=== PATIENT | male | born 1950 | race Caucasian/White ===

== ENCOUNTER 2017-09-01 05:38 | Inpatient (IN) | payer MEDICARE, MEDICAID ==
[2017-08-17 08:58] VITALS: BMI 27.1
[2017-09-01] MEDS ORDERED: Bacitracin 50,000 UNIT in Sodium Chloride 0.9% Irrig 1,000 ML IR SCH (07:15)
[2017-09-01] MEDS ORDERED: Propofol 10 mg/ml Inj (20 ML) ONE (07:30)
[2017-09-01] MEDS ORDERED: Midazolam 2 MG/2 ML VIAL ONE (07:30)
[2017-09-01] MEDS ORDERED: Phenylephrine 10 mg/ml Inj ONE (07:34)
[2017-09-01] MEDS ORDERED: Neostigmine Methylsulfate 3mg/3ml Syringe IV ONE (07:34)
[2017-09-01] MEDS ORDERED: Succinylcholine Chloride 20 mg/ml Syr (5 ml) IV ONE (07:34)
[2017-09-01] MEDS ORDERED: Rocuronium 10 mg/ml (5 ml) ONE (07:34)
[2017-09-01] MEDS ORDERED: Gentamicin 160 MG in Sodium Chloride 0.9% 100 ML IVPB ONE (07:47)
[2017-09-01] MEDS ORDERED: Vancomycin 1 gm/D5W 200 ml 1 GM/200 ML BAG IVPB ONE (07:49)
[2017-09-01] MEDS ORDERED: Lactated Ringer's 1,000 ML IV ONE ×2 (08:05→09:51)
[2017-09-01] MEDS ORDERED: Bacitracin 500 Units/gm Oint Foilpak UD ONE (10:13)
[2017-09-01] MEDS ORDERED: Morphine 4 MG/ML VIAL ONE (10:24)
[2017-09-01] MEDS: HYDROmorphone 0.5 mg/0.5 ml ISec IVP PRN ×4 (11:36→13:37)
[2017-09-01] MEDS ORDERED: Oxycodone/Acetaminophen 5/325 mg Tab PO PRN (12:47)
[2017-09-01] MEDS ORDERED: HYDROmorphone 0.5 mg/0.5 ml ISec IVP PRN (13:36)
[2017-09-01] MEDS ORDERED: HYDROmorphone 0.5 mg/0.5 ml ISec ONE (13:38)
[2017-09-01] MEDS: Oxycodone/Acetaminophen 5/325 mg Tab PO PRN (22:35)
[2017-09-02] MEDS: Oxycodone/Acetaminophen 5/325 mg Tab PO PRN (08:20)
[2017-09-02] MEDS: Dextrose 5%/0.45% NS 1,000 ML IV SCH (10:30)
[2017-09-02] MEDS: Morphine 4 MG/ML VIAL SC PRN ×3 (11:33→23:55)
[2017-09-02] MEDS: Ciprofloxacin 400mg/200ml D5W 400 MG/200 ML BAG IVPB SCH (12:55)
--- NOTE | 2017-09-02 20:26 | CP.PCM.CON ---
Past Patient History - Past Medical History & Family History Past Medical History?: Yes - Past Social History Smoking Status: Never Smoked - HEMATOLOGICAL/ONCOLOGICAL Hx Blood Disorders: Yes Hx Cancer: Yes (prostate) - GENITOURINARY/GYNECOLOGICAL Hx Genitourinary Disorders: Yes (erecticle dysfunction) - SURGICAL HISTORY Hx Surgeries: Yes Hx Appendectomy: Yes Other/Comment: prostactectomy - ANESTHESIA Hx Anesthesia: Yes Hx Anesthesia Reactions: No Hx Malignant Hyperthermia: No Has any member of the family had a problem w/ anesthesia?: No Meds Allergies/Adverse Reactions: Allergies Allergy/AdvReac Type Severity Reaction Status Date / Time shellfish derived Allergy RASH Verified 09/01/17 05:55 - Medications Medications: Current Medications Dextrose/Sodium Chloride (Dextrose 5%/0.45% Ns 1000 Ml) 1,000 mls @ 50 mls/hr IV .Q20H [facility] Last Admin: 09/02/17 10:30 Dose: 50 mls/hr Ciprofloxacin (Cipro 400mg/200ml Dsw) 400 mg in 200 mls @ 133 mls/hr IVPB Q12H [facility] PRN Reason: Protocol Last Admin: 09/02/17 12:55 Dose: 133 mls/hr Morphine Sulfate (Morphine) 3 mg SC Q3 PRN PRN Reason: Pain, severe (8-10) Last Admin: 09/02/17 15:58 Dose: 3 mg Oxycodone/Acetaminophen (Percocet 5/325 Mg Tab) 1 tab PO Q6H PRN PRN Reason: Pain, moderate (4-7) Stop: 09/04/17 15:26 Last Admin: 09/02/17 08:20 Dose: 1 tab Results - Vital Signs Recent Vital Signs: Last Vital Signs Temp 98.1 F 09/02/17 15:00 Pulse 86 09/02/17 15:00 Resp 20 09/02/17 15:00 BP 130/72 09/02/17 15:00 Pulse Ox 98 09/02/17 15:00 Assessment & Plan - Assessment and Plan (Free Text) Plan: Cipro Protonix SCD Urine culture sensitivity Discussed with the patient and another family member sitting next to the patient continue same
[2017-09-03 08:03] LABS: BASO % 0.3 % (0.0-2.0); EOS # 0.1 K/uL (0.0-0.7); EOS % 0.7 % (0.0-4.0); HEMOGLOBIN 14.1 g/dL (12.0-18.0); LYMPH # 1.7 K/uL (1.0-4.3); LYMPH % 12.5 % (20.0-40.0); MEAN CELL VOLUME 97.8 fL (80.0-94.0); MEAN CORPUSCULAR HEMOGLOBIN 33.9 pg (27.0-31.0); MEAN CORPUSCULAR HGB CONC 34.6 g/dL (33.0-37.0); MEAN PLATELET VOLUME 11.5 fL (7.2-11.7); MONO # 1.7 K/uL (0.0-0.8); MONO % 12.2 % (0.0-10.0); NEUT # 10.2 K/uL (1.8-7.0); NEUT % 74.3 % (50.0-75.0); RBC 4.15 Mil/uL (4.40-5.90); RED CELL DISTRIBUTION WIDTH 12.6 % (11.5-14.5); WHITE BLOOD COUNT 13.7 K/uL (4.8-10.8)
[2017-09-03 08:25] LABS: ALB/GLOB RATIO 1.1 (1.0-2.1); ALBUMIN 3.9 g/dL (3.5-5.0); ALT/SGPT 29 U/L (21-72); AST/SGOT 26 U/L (17-59); BLOOD UREA NITROGEN 12 mg/dL (9-20); CALCIUM 8.4 mg/dl (8.6-10.4); GFR AFRICAN-AMERICAN > 60; GFR NON-AFRICAN AMERICAN > 60
[2017-09-03] MEDS: Morphine 4 MG/ML VIAL SC PRN ×2 (08:29→16:52)
[2017-09-03] MEDS: Dextrose 5%/0.45% NS 1,000 ML IV SCH ×2 (08:37→12:06)
[2017-09-03] MEDS: Pantoprazole 40 mg EC Tab PO SCH (10:58)
[2017-09-03] MEDS: Oxycodone/Acetaminophen 5/325 mg Tab PO PRN ×2 (12:01→21:46)
[2017-09-03] MEDS: Ciprofloxacin 400mg/200ml D5W 400 MG/200 ML BAG IVPB SCH ×2 (12:04)
--- NOTE | 2017-09-03 16:24 | CP.PCM.PN ---
Subjective - Date & Time of Evaluation Date of Evaluation: 09/03/17 Time of Evaluation: 07:10 - Subjective Subjective: clinically same Objective - Vital Signs/Intake and Output Vital Signs (last 24 hours): Temp Pulse Resp BP Pulse Ox 98.0 F 82 20 117/69 95 09/03/17 15:00 09/03/17 15:00 09/03/17 15:00 09/03/17 15:00 09/03/17 15:00 Intake and Output: 09/03/17 09/03/17 06:59 18:59 Intake Total Output Total Balance - Medications Medications: Current Medications Morphine Sulfate (Morphine) 3 mg SC Q3 PRN PRN Reason: Pain, severe (8-10) Last Admin: 09/03/17 08:29 Dose: 3 mg Oxycodone/Acetaminophen (Percocet 5/325 Mg Tab) 1 tab PO Q6H PRN PRN Reason: Pain, moderate (4-7) Stop: 09/04/17 15:26 Last Admin: 09/03/17 12:01 Dose: 1 tab Pantoprazole Sodium (Protonix Ec Tab) 40 mg PO DAILY [facility] Last Admin: 09/03/17 10:58 Dose: 40 mg - Labs Labs: 09/03/17 07:52 09/03/17 07:52 - Constitutional Appears: Well - Head Exam Head Exam: ATRAUMATIC, NORMAL INSPECTION, NORMOCEPHALIC - Eye Exam Eye Exam: EOMI, Normal appearance, PERRL Pupil Exam: NORMAL ACCOMODATION, PERRL - ENT Exam ENT Exam: Mucous Membranes Moist, Normal Exam - Neck Exam Neck Exam: Full ROM, Normal Inspection. absent: Lymphadenopathy - Respiratory Exam Respiratory Exam: Decreased Breath Sounds - Cardiovascular Exam Cardiovascular Exam: REGULAR RHYTHM, +S1, +S2 - GI/Abdominal Exam GI & Abdominal Exam: Soft, Diminished Bowel Sounds - Rectal Exam Rectal Exam: Deferred
[2017-09-04 08:02] VITALS: RESP 20
[2017-09-04] MEDS: Morphine 4 MG/ML VIAL SC PRN ×2 (08:13→13:38)
[2017-09-04] MEDS: Pantoprazole 40 mg EC Tab PO SCH (09:43)
[2017-09-04] MEDS ORDERED: Influenza Vaccine 60 mcg/0.5 mL SYR (4YR UP) IM ONE (10:00)
--- NOTE | 2017-09-04 11:55 | CP.PCM.PN ---
<YifanShine bramibla - Last Filed: 09/04/17 15:55> Subjective - Date & Time of Evaluation Date of Evaluation: 09/04/17 Time of Evaluation: 11:43 - Subjective Subjective: PGY-[address] Akers's service: Pt seen and examined at bedside. Nursing reports no acute events overnight. Patient s/p penile implant, pt with history of erectile dysfunction/ prostatectomy. Pt states his pain was controlled with current regimen but admits to pain when his medication is wearing off. He denies fever, chills, chest pain, SOB, abdominal pain, N/V. Objective - Vital Signs/Intake and Output Vital Signs (last 24 hours): Temp Pulse Resp BP Pulse Ox 98.5 F 90 20 111/71 97 09/04/17 08:00 09/04/17 08:00 09/04/17 08:00 09/04/17 08:00 09/04/17 08:00 Intake and Output: 09/04/17 09/04/17 06:59 18:59 Intake Total 170 Output Total 800 Balance -630 - Medications Medications: Current Medications Morphine Sulfate (Morphine) 3 mg SC Q3 PRN PRN Reason: Pain, severe (8-10) Last Admin: 09/04/17 08:13 Dose: 3 mg Oxycodone/Acetaminophen (Percocet 5/325 Mg Tab) 1 tab PO Q6H PRN PRN Reason: Pain, moderate (4-7) Stop: 09/04/17 15:26 Last Admin: 09/03/17 21:46 Dose: 1 tab Pantoprazole Sodium (Protonix Ec Tab) 40 mg PO DAILY [facility] Last Admin: 09/04/17 09:43 Dose: 40 mg - Labs Labs: 09/03/17 07:52 09/03/17 07:52 - Constitutional Appears: Non-toxic, No Acute Distress - Head Exam Head Exam: ATRAUMATIC, NORMAL INSPECTION - Eye Exam Eye Exam: EOMI, Normal appearance Pupil Exam: PERRL - ENT Exam ENT Exam: Mucous Membranes Moist - Neck Exam Neck Exam: Full ROM - Respiratory Exam Respiratory Exam: Clear to Ausculation Bilateral, NORMAL BREATHING PATTERN - Cardiovascular Exam Cardiovascular Exam: REGULAR RHYTHM, +S1, +S2 - GI/Abdominal Exam GI & Abdominal Exam: Soft, Normal Bowel Sounds. absent: Tenderness - Extremities Exam Extremities Exam: Normal Inspection - Back Exam Back Exam: absent: CVA tenderness (L), CVA tenderness (R) - Neurological Exam Neurological Exam: Alert, Awake, Oriented x3 - Psychiatric Exam Psychiatric exam: Normal Affect, Normal Mood - Skin Skin Exam: Normal Color, Warm Assessment and Plan - Assessment and Plan (Free Text) Plan: s/p Penile implant Hx of prostatectomy/Erectile dysfunction Morphine 3mg SC Q3H PRN Percocet 5/325mg PO Q6H PRN Urine culture (09/01/17): no growth Prophylaxis Protonix 40mg PO Daily SCDs Hold VTE at this time due to recent procedure PT/OT - recommend DC to TCU Disposition: Pt for removal of guerra cath today by Dr. Black. Possible discharge pending evaluation by Dr. Black. Shine Kwan PGY2 All medical management per Dr. Akers <Marisol Akers S - Last Filed: 09/04/17 19:28> Subjective - Subjective Subjective: Casein and discussed with the staff and the resident Objective - Vital Signs/Intake and Output Vital Signs (last 24 hours): Temp Pulse Resp BP Pulse Ox 98.6 F 84 20 106/64 95 09/04/17 16:00 09/04/17 16:00 09/04/17 16:00 09/04/17 16:00 09/04/17 16:00 Intake and Output: 09/04/17 09/05/17 18:59 06:59 Intake Total 480 Output Total 525 Balance -45 - Medications Medications: Current Medications Cephalexin Monohydrate (Keflex) 500 mg PO Q6 [facility] PRN Reason: Protocol Last Admin: 09/04/17 18:10 Dose: 500 mg Docusate Sodium (Colace) 100 mg PO TID [facility] Last Admin: 09/04/17 18:10 Dose: 100 mg Morphine Sulfate (Morphine) 3 mg SC Q3 PRN PRN Reason: Pain, severe (8-10) Last Admin: 09/04/17 13:38 Dose: 3 mg Oxycodone/Acetaminophen (Percocet 5/325 Mg Tab) 1 tab PO Q6H PRN PRN Reason: Pain, severe (8-10) Stop: 09/07/17 15:35 Last Admin: 09/04/17 15:40 Dose: 1 tab Pantoprazole Sodium (Protonix Ec Tab) 40 mg PO DAILY [facility] Last Admin: 09/04/17 09:43 Dose: 40 mg - Labs Labs: 09/03/17 07:52 09/03/17 07:52 Assessment and Plan (1) Malfunction of penile prosthesis Status: Acute (2) UTI (urinary tract infection) Status: Acute
--- NOTE | 2017-09-04 13:10 | CP.PCM.PN ---
Subjective - Date & Time of Evaluation Date of Evaluation: 09/04/17 Time of Evaluation: 07:10 - Subjective Subjective: clinically same Objective - Vital Signs/Intake and Output Vital Signs (last 24 hours): Temp Pulse Resp BP Pulse Ox 98.5 F 90 20 111/71 97 09/04/17 08:00 09/04/17 12:48 09/04/17 08:00 09/04/17 08:00 09/04/17 12:48 Intake and Output: 09/04/17 09/04/17 06:59 18:59 Intake Total 170 Output Total 800 Balance -630 - Medications Medications: Current Medications Morphine Sulfate (Morphine) 3 mg SC Q3 PRN PRN Reason: Pain, severe (8-10) Last Admin: 09/04/17 08:13 Dose: 3 mg Oxycodone/Acetaminophen (Percocet 5/325 Mg Tab) 1 tab PO Q6H PRN PRN Reason: Pain, moderate (4-7) Stop: 09/04/17 15:26 Last Admin: 09/03/17 21:46 Dose: 1 tab Pantoprazole Sodium (Protonix Ec Tab) 40 mg PO DAILY [facility] Last Admin: 09/04/17 09:43 Dose: 40 mg - Labs Labs: 09/03/17 07:52 09/03/17 07:52 - Constitutional Appears: Well - Head Exam Head Exam: ATRAUMATIC, NORMAL INSPECTION, NORMOCEPHALIC - Eye Exam Eye Exam: EOMI, Normal appearance, PERRL Pupil Exam: NORMAL ACCOMODATION, PERRL - ENT Exam ENT Exam: Mucous Membranes Moist, Normal Exam - Neck Exam Neck Exam: Full ROM, Normal Inspection. absent: Lymphadenopathy - Respiratory Exam Respiratory Exam: Decreased Breath Sounds - Cardiovascular Exam Cardiovascular Exam: REGULAR RHYTHM, +S1, +S2 - GI/Abdominal Exam GI & Abdominal Exam: Soft, Diminished Bowel Sounds - Rectal Exam Rectal Exam: Deferred Assessment and Plan (1) Malfunction of penile prosthesis Status: Acute (2) UTI (urinary tract infection) Status: Acute - Assessment and Plan (Free Text) Plan: s/p Penile implant Hx of prostatectomy/Erectile dysfunction Morphine 3mg SC Q3H PRN Percocet 5/325mg PO Q6H PRN Urine culture (09/01/17): no growth Prophylaxis Protonix 40mg PO Daily SCDs Hold VTE at this time due to recent procedure PT/OT - recommend DC to TCU Disposition: Pt for removal of guerra cath today by Dr. Black. Possible discharge pending evaluation by Dr. Black.
[2017-09-04] MEDS ORDERED: Oxycodone/Acetaminophen 5/325 mg Tab PO PRN (15:34)
[2017-09-04] MEDS ORDERED: Magnesium Hydroxide Susp 30 ml UD PO ONE ×2 (16:26→17:45)
[2017-09-04] MEDS ORDERED: POLYETHYLENE GLYCOL 3350 17 GM/Dose PACKET PO ONE (16:29)
[2017-09-05 08:24] VITALS: BP 119/75; PULSE 87; TEMP 98.2; O2SAT 97
--- NOTE | 2017-09-05 08:41 | PCM.URO ---
Urology Progress Note - Objective Lab Studies: Reviewed (plans for discharge) Intake & Output: Intake & Output 09/04/17 09/05/17 09/05/17 18:59 06:59 18:59 Intake Total 480 240 Output Total 525 Balance -45 240 Intake: Oral 480 240 Output: Urine 525 Urethral (Griffin) 525 Other: # Voids Urethral (Griffin) 2 # Bowel Movements 0 Vital Signs: Vital Signs - 24 hr 09/04/17 09/04/17 09/05/17 12:48 16:00 00:00 Temperature 98.6 F 98.3 F Pulse Rate 90 84 89 Respiratory 20 20 Rate Blood Pressure 106/64 114/77 O2 Sat by Pulse 97 95 94 L Oximetry 09/05/17 08:23 Temperature 98.2 F Pulse Rate 87 Respiratory 20 Rate Blood Pressure 119/75 O2 Sat by Pulse 97 Oximetry
[2017-09-05] MEDS: Pantoprazole 40 mg EC Tab PO SCH (09:42)
--- NOTE | 2017-09-05 09:59 | CP.PCM.PN ---
<Sukhjinder Billingsley - Last Filed: 09/05/17 11:04> Subjective - Date & Time of Evaluation Date of Evaluation: 09/05/17 Time of Evaluation: 09:58 - Subjective Subjective: Progress Note for Dr. Akers's Service Pt seen and examined at bedside. He states that he is feeling well and would like to go home. No bowel movement as of yet. Patient does not have any acute complaints. No acute events. Objective - Vital Signs/Intake and Output Vital Signs (last 24 hours): Temp Pulse Resp BP Pulse Ox 98.2 F 87 20 119/75 97 09/05/17 08:23 09/05/17 08:23 09/05/17 08:23 09/05/17 08:23 09/05/17 08:23 Intake and Output: 09/05/17 09/05/17 06:59 18:59 Intake Total 240 Balance 240 - Medications Medications: Current Medications Cephalexin Monohydrate (Keflex) 500 mg PO Q6 [facility] PRN Reason: Protocol Last Admin: 09/05/17 05:18 Dose: 500 mg Docusate Sodium (Colace) 100 mg PO TID [facility] Last Admin: 09/05/17 09:42 Dose: 100 mg Morphine Sulfate (Morphine) 3 mg SC Q3 PRN PRN Reason: Pain, severe (8-10) Last Admin: 09/04/17 13:38 Dose: 3 mg Oxycodone/Acetaminophen (Percocet 5/325 Mg Tab) 1 tab PO Q6H PRN PRN Reason: Pain, severe (8-10) Stop: 09/07/17 15:35 Last Admin: 09/04/17 15:40 Dose: 1 tab Pantoprazole Sodium (Protonix Ec Tab) 40 mg PO DAILY [facility] Last Admin: 09/05/17 09:42 Dose: 40 mg - Labs Labs: 09/03/17 07:52 09/03/17 07:52 - Constitutional Appears: No Acute Distress - Head Exam Head Exam: ATRAUMATIC, NORMAL INSPECTION - Eye Exam Eye Exam: EOMI, Normal appearance - ENT Exam ENT Exam: Mucous Membranes Moist - Respiratory Exam Respiratory Exam: Clear to Ausculation Bilateral - Cardiovascular Exam Cardiovascular Exam: REGULAR RHYTHM, +S1, +S2 - GI/Abdominal Exam GI & Abdominal Exam: Soft. absent: Tenderness - Neurological Exam Neurological Exam: Alert, Awake, Oriented x3 - Skin Skin Exam: Dry, Warm Assessment and Plan - Assessment and Plan (Free Text) Plan: s/p Penile implant Hx of prostatectomy/Erectile dysfunction Pain is reduced/tolerable on current medications. Urine culture (09/01/17): no growth Discharge planning for today as per urology. Patient will need follow up after discharge. Case discussed with Dr. Akers. All management as per Dr. Akers. <Marisol Akers - Last Filed: 09/05/17 12:17> Objective - Vital Signs/Intake and Output Vital Signs (last 24 hours): Temp Pulse Resp BP Pulse Ox 98.2 F 87 20 119/75 97 09/05/17 08:23 09/05/17 08:23 09/05/17 08:23 09/05/17 08:23 09/05/17 08:23 Intake and Output: 09/05/17 09/05/17 06:59 18:59 Intake Total 240 Balance 240 - Medications Medications: Current Medications Cephalexin Monohydrate (Keflex) 500 mg PO Q6 [facility] PRN Reason: Protocol Last Admin: 09/05/17 12:07 Dose: 500 mg Docusate Sodium (Colace) 100 mg PO TID [facility] Last Admin: 09/05/17 09:42 Dose: 100 mg Morphine Sulfate (Morphine) 3 mg SC Q3 PRN PRN Reason: Pain, severe (8-10) Last Admin: 09/04/17 13:38 Dose: 3 mg Oxycodone/Acetaminophen (Percocet 5/325 Mg Tab) 1 tab PO Q6H PRN PRN Reason: Pain, severe (8-10) Stop: 09/07/17 15:35 Last Admin: 09/04/17 15:40 Dose: 1 tab Pantoprazole Sodium (Protonix Ec Tab) 40 mg PO DAILY [facility] Last Admin: 09/05/17 09:42 Dose: 40 mg - Labs Labs: 09/03/17 07:52 09/03/17 07:52 Assessment and Plan (1) Malfunction of penile prosthesis Status: Acute (2) UTI (urinary tract infection) Status: Acute Attending/Attestation - Attestation I have personally seen and examined this patient.: Yes I have fully participated in the care of the patient.: Yes I have reviewed all pertinent clinical information, including history, physical exam and plan: Yes Notes (Text): 09/05/17 12:17 case seen and d.w staff med agreed for penile implant kealisa
--- NOTE | 2017-09-05 12:18 | CP.PCM.PN ---
Subjective - Date & Time of Evaluation Date of Evaluation: 09/05/17 Objective - Vital Signs/Intake and Output Vital Signs (last 24 hours): Temp Pulse Resp BP Pulse Ox 98.2 F 87 20 119/75 97 09/05/17 08:23 09/05/17 08:23 09/05/17 08:23 09/05/17 08:23 09/05/17 08:23 Intake and Output: 09/05/17 09/05/17 06:59 18:59 Intake Total 240 Balance 240 - Medications Medications: Current Medications Cephalexin Monohydrate (Keflex) 500 mg PO Q6 [facility] PRN Reason: Protocol Last Admin: 09/05/17 12:07 Dose: 500 mg Docusate Sodium (Colace) 100 mg PO TID [facility] Last Admin: 09/05/17 09:42 Dose: 100 mg Morphine Sulfate (Morphine) 3 mg SC Q3 PRN PRN Reason: Pain, severe (8-10) Last Admin: 09/04/17 13:38 Dose: 3 mg Oxycodone/Acetaminophen (Percocet 5/325 Mg Tab) 1 tab PO Q6H PRN PRN Reason: Pain, severe (8-10) Stop: 09/07/17 15:35 Last Admin: 09/04/17 15:40 Dose: 1 tab Pantoprazole Sodium (Protonix Ec Tab) 40 mg PO DAILY [facility] Last Admin: 09/05/17 09:42 Dose: 40 mg - Labs Labs: 09/03/17 07:52 09/03/17 07:52 Assessment and Plan (1) Malfunction of penile prosthesis Status: Acute (2) UTI (urinary tract infection) Status: Acute - Assessment and Plan (Free Text) Plan: Urine culture so far negative continue Cipro discharge on Keflex follow-up with Dr. Heart For discharge today
--- NOTE | 2017-10-02 02:46 | DS ---
See the admission history and physical and see the operative note. See the progress note. At this point, this patient is discharged to home. Postop, the patient had a normal postop course. No fevers. No signs of infection. Vital signs remain stable, just having some normal abdominal discomfort. Subsequently, the patient is now discharged home in stable condition. INSTRUCTIONS FOR DISCHARGE: To return to the office. Management of urinary output and Griffin catheters and then further plans are to follow. We discussed also cycling of the pump. We will discuss this with the patient further. Hang Black MD
--- NOTE | 2017-10-02 07:35 | OP ---
PROCEDURE DATE: 09/01/2017 PREOPERATIVE DIAGNOSES: Prostate cancer, no evidence of recurrent, erectile dysfunction, faulty functioning AMS penile prosthesis with an SST deformity at the prosthesis not in the mid glans rather within the shaft. There was a little imbalance towards the right side but neither one coming too far distally. POSTOPERATIVE DIAGNOSES: Prostate cancer, no evidence of recurrent, erectile dysfunction, faulty functioning AMS penile prosthesis with an SST deformity at the prosthesis not in the mid glans rather within the shaft. There is a little imbalance on the left and right side but neither one coming too far distally. PROCEDURE: Removal of the old penile prosthesis, insertion of a new inflatable repeat prosthesis, looks like including a new reservoir including a new pump. SURGEON: Hang Black MD TRAILER SECTIONS ASSEMBLER: Radha Black MD ESTIMATED BLOOD LOSS: Less than 25 cc. COMPLICATIONS: There were no complications. The patient has a whole erection with no SST deformity with both penile prostheses in the mid glans. DRAINS: Griffin catheter via the urethra. At the termination of the procedure, the patient has a good erection with no SST deformity. The pump is within the scrotum well, it is actually in a new location. It is in the mid portion, the distended portion, of the scrotum. A new reservoir has now been placed on the patient's left thigh. The old reservoir has been secured in place. The old prosthesis was removed. INDICATIONS: See history and physical for further details. A very pleasant gentleman with prostate cancer. Currently, no evidence of disease who is now here for the above listed procedure. I discussed with the patient the risks and benefits, I also read all the material including my atlases. I read the recent article on management of SST deformity. Given the complex nature of the surgery and the fact I have to redo, I have also made arrangement to have a board certified urologist here to assist me not if the OR upholstery technician, but an actual urologist, given the difficult nature of this procedure for the patient safety. The patient has medical clearance. We discussed options. We discussed sometimes, we tear the glans. I think that this will correct the SST deformity, but in this case in close physical exam, the prosthesis itself is really within the shaft as a little asymmetry between the left and right thigh, but neither one is either close to the mid glans, I think this will correct the patient's problem more than anything, so after discussing all the options with the patient, risks, benefits, treatment and alternatives, he is now here for the above procedure. The patient was provided with antibiotic prophylaxis. See the chart for the antibiotics which were used. Today, prior to the procedure, we brought the patient for preoperative scrub as well as providing the routine scrub. Time-out was called, and we confirmed the patient. We had given antibiotic prophylaxis, and we began our procedure. Also arranged to have traffic representative here as well. DESCRIPTION OF PROCEDURE: The procedure is as follows. The patient was placed in a supine position. The Griffin catheter was inserted in a sterile field. We went through, we did a penile scrotal incision. We dissected down through the previous prosthesis, and delivered the old prosthesis. We did it meticulously and carefully. We made it safe by keeping the old reservoir and the old pump but after speaking about it with the patient in this particular setting in terms of risks of injection, location, etc, we adjusted all positioning. Once we removed the shaft, we dilated, although it was mostly dilated but we wanted to go much more distally. We also were able to access based on the prosthesis and the company team available. We were able to check the previous sizing,and then adjust accordingly and actually add a centimeter or two to the prosthesis, about 2 cm in each side. This We carefully did this. We dilated proximally and distally, and we use the needles to measure the sizes on both the left and right side. Once we had done this, we evaluated further. We inserted using the needle, the prosthesis itself. We now then inflated it and gently brought to avoid any air and we saw that it had a very nice lineup to the mid glans. We now wanted to put the new reservoir and we secured out the old reservoir. We did state we ducted the new reservoir in the left lower quadrant. I made sure that there is no water inflation. We now put a penile prosthesis and we put a pump in the scrotum. We lined it up to have the button facing out. We connected all inflated to made sure it is working properly. It is working properly and it is seated in good location. Overall, the patient tolerated the procedure well. We now secured everything. We make sure this inflated well. Again at this point I mentioned throughout the entire procedure, we irrigated the wounds copiously. With antibiotic irrigation, we repeated with several times throughout the procedure. We would like to proceed, and we made sure we achieved hemostasis. Overall, the patient tolerated the procedure well. We leave the prosthesis with the inflated. We closed our with the stay suture that we had placed previously, we now closed the wound. Everything looks good. The patient was brought to the recovery room in stable condition having tolerated the procedure well without complications. Hang Black MD
--- NOTE | 2017-10-02 07:40 | HP ---
The patient is brought to the bed. REASON FOR ADMISSION: Removal of a faulty inflatable penile prosthesis and insertion of a new one. HISTORY OF PRESENT ILLNESS: Mr. Longoria is a very pleasant gentleman who has a history of prostate cancer that has been treated by another urologist, has not seen that urologist for quite sometime. At that time, the doctor found him to have a malignant prostate cancer. He recommended that the patient underwent a robotic radical retropubic prostatectomy. His postop PSA numbers have been essentially 0. He is currently FELICIANO. He generally voids pretty well, reasonably good with good control, incontinent. He subsequently had an inflatable prosthesis inserted by another urologist. He is not happy about the SST deformity. He is not happy with his sexual activity, particularly related to the prosthesis. His desire to sexual activity is what he reports is normal, but he has a defect at the tip of the penis and this is noteworthy, and he is not able to have intercourse properly. We discussed options and he is here today for removal and insertion (see below plans). I read up are the various possible ways to correct it. I discussed all this with the patient, again see below. In terms of possible corporal defect defect versus breaking the prosthesis further distally. with voiding dysfunction basically. No obvious strictures or bladder neck contracture. After discussing the options, he is here today for insertion of a new penile prosthesis. We did discuss details, but I feel that he will be served better with insertion of a new penile prosthesis. PAST MEDICAL HISTORY AND SURGICAL HISTORY: Listed in the chart. Essentially negative for diabetes, CVA, and AR. He has been in his reasonable state of health, and he obtained medical clearance from his doctor. MEDICATIONS: See chart. ALLERGIES: NONE. REVIEW OF SYSTEMS: No weight loss, chest pain, or shortness of breath. PHYSICAL EXAMINATION: GENERAL: A well-nourished male, in no apparent distress. HEENT: Sclera nonicteric, noninjected, normocephalic, atraumatic. NECK: No cervical or axillary lymphadenopathy. LUNGS: Clear. HEART: Normal S1, S2. ABDOMEN: Overall, soft and nontender. Port sites are noted. No hernia is appreciated. He has the following. He has a normal reno. The prosthesis on the left corporal body is a little more distal than the right corporal body but both of them did not go on to the glans. They go out to the shaft. The pump does work. We were able to inflate and deflate. RECTAL: Deferred. Please note that his previous rectal exam was within normal limits and the prosthetic fossa. No testicular masses are noted. NEUROLOGIC: Grossly within normal limits. EXTREMITIES: Unremarkable without edema. DIAGNOSES: 1. Prostate cancer. 2. No evidence of disease or recurrence of prostate cancer. 3. Erectile dysfunction, he is status post inflatable penile prosthesis that is currently not able to achieve an erection to the patient's satisfaction and mild voiding dysfunction with minimal incontinence. After discussing the plan as follows, we discussed various options with the patient and we decided on insertion of a new penile prosthesis. I made the following I then reviewed the journals and different literature and options to the patient. I did discus the repair of implants. the insertion of a new penile prosthesis more with a new prosthesis just with the glans more distally. Because of the difficult nature of this procedure, it is not something that I wanted to I made arrangement, therefore, with another board certified urologist for the patient's safety. Dr. Sai Black will be available. I had a chance to discuss the various options. See operative note need a second urologic surgeon if this is not a primary but a redo prosthesis with a complicated story. I will need night assistant in surgical and intraoperative decision making, etc., given the difficult nature of the case by definition. We made arrangements. I have made medical clearance. I will have the patient prepare himself and the day before. As per protocol, we will prep the patient sterilely. We will keep the room sterile. I explained to the patient at length the risk of a redo, specifically regarding infection and sometimes the necessity for removal. I will discuss with the patient that sometimes difficult, and I am concerned still that he could still end up with an SST deformity, but we will do our best to correct this and to engage the prosthesis and make it a little further distally into the mid glans on both sides left and right. After discussing all these options and risks, benefits and alternatives, we have planned to proceed. 1. Hibiclens prep a day before. 2. Antibiotic prophylaxis. 3. We will do a full scrub. 4. I have made arrangements to have the for the [employer] company available to assist me. I have made arrangements to have a second board certified urologist available for the surgery itself given the difficult nature of the surgery. These all have been explained to the patient at very length. We are going to plan to proceed. Hang Black MD
== END 2017-09-05 16:18 | disposition home or self-care (01) | DRG 674 ==
LOC: C.SDS 05:38 → C.9S 15:21 → C.3T 15:21 → C.9S 15:23 → OBSVTOIN 09-03 15:23
PROVIDERS: ADMIT Urology; ATTEND Urology
PROC: 0VP Male Reproductive System, Removal (ICD-10-PCS; principal; 2017-08-31)
PROC: 0VUS0JZ Supplement Penis with Synthetic Substitute, Open Approach (ICD-10-PCS; 2017-08-31)
DX: T83.498A Other mechanical complication of other prosthetic devices, implants and grafts of genital tract, initial encounter (principal); N39.0 Urinary tract infection, site not specified; N52.9 Male erectile dysfunction, unspecified; Z96.0 Presence of urogenital implants; Z90.49 Acquired absence of other specified parts of digestive tract

== ENCOUNTER 2017-09-21 14:17 | Inpatient (IN) | payer MEDICARE, MEDICAID ==
[2017-09-21 14:30] VITALS: BMI 27.3
[2017-09-21] MEDS ORDERED: Sodium Chloride 0.9% 1,000 ML IV ONE (15:46)
[2017-09-21 15:58] LABS: BASO # 0.1 K/uL (0.0-0.2); BASO % 0.8 % (0.0-2.0); EOS # 0.3 K/uL (0.0-0.7); EOS % 3.8 % (0.0-4.0); HEMOGLOBIN 15.5 g/dL (12.0-18.0); LYMPH # 1.7 K/uL (1.0-4.3); LYMPH % 21.6 % (20.0-40.0); MEAN CELL VOLUME 98.4 fL (80.0-94.0); MEAN CORPUSCULAR HEMOGLOBIN 32.9 pg (27.0-31.0); MEAN CORPUSCULAR HGB CONC 33.4 g/dL (33.0-37.0); MEAN PLATELET VOLUME 10.7 fL (7.2-11.7); MONO # 0.5 K/uL (0.0-0.8); NEUT # 5.1 K/uL (1.8-7.0); NEUT % 66.8 % (50.0-75.0); RBC 4.71 Mil/uL (4.40-5.90); RED CELL DISTRIBUTION WIDTH 12.8 % (11.5-14.5); WHITE BLOOD COUNT 7.7 K/uL (4.8-10.8)
[2017-09-21] MEDS ORDERED: Sodium Chloride 0.9% 1,000 ML ONE (15:59)
[2017-09-21 16:13] LABS: SQUAMOUS EPITHIAL < 1 /hpf (0-5); URINE BILIRUBIN NEGATIVE (NEGATIVE); URINE BLOOD 1+ (NEGATIVE); URINE CLARITY Clear (Clear); URINE COLOR Yellow (YELLOW); URINE GLUCOSE (UA) NORMAL (Normal); URINE LEUKOCYTE ESTERASE NEG Leu/uL (Negative); URINE PROTEIN NEGATIVE (NEGATIVE); URINE UROBILINOGEN NORMAL mg/dL (0.2-1.0)
[2017-09-21 16:14] LABS: ALBUMIN 4.9 g/dL (3.5-5.0); ALT/SGPT 18 U/L (21-72); AST/SGOT 24 U/L (17-59); BLOOD UREA NITROGEN 18 mg/dL (9-20); CALCIUM 9.6 mg/dl (8.6-10.4); GFR AFRICAN-AMERICAN > 60; GFR NON-AFRICAN AMERICAN > 60
--- NOTE | 2017-09-21 16:38 | C.PDOC ---
History Of Present Illness Pt c/o penile/scrotal pain s/p penile prosthesis surgery 2 weeks ago. Time Seen by Provider: 09/21/17 15:37 Chief Complaint (Nursing): Male Genitourinary History Per: Patient Onset/Duration Of Symptoms: Days (about 2 weeks) Current Symptoms Are (Timing): Worse Severity: Moderate Quality Of Discomfort: "Pain" Alleviating Factors: None Additional History Per: Prior Records Past Medical History Reviewed: Historical Data, Nursing Documentation, Vital Signs Vital Signs: Last Vital Signs Temp 97.7 F 09/21/17 14:30 Pulse 78 09/21/17 14:30 Resp 20 09/21/17 14:30 BP 120/91 H 09/21/17 14:30 Pulse Ox 97 09/21/17 14:30 - Medical History PMH: No Chronic Diseases Surgical History: Appendectomy, Endoscopy Other Surgeries: Penile prosthesis surgery - [facility] Procedures COLONOSCOPY (12/18/06) INS INFLATE PENIS PROSTH (10/01/12) OTHER APPENDECTOMY (01/18/98) Family History: States: Unknown Family Hx - Social History Hx Alcohol Use: No Hx Substance Use: No - Immunization History Hx Tetanus Toxoid Vaccination: No Hx Influenza Vaccination: Yes Hx Pneumococcal Vaccination: Yes Review Of Systems Except As Marked, All Systems Reviewed And Found Negative. Constitutional: Negative for: Fever Cardiovascular: Negative for: Chest Pain Respiratory: Negative for: Shortness of Breath Gastrointestinal: Negative for: Vomiting Genitourinary: Positive for: Scrotal Pain, Penile Pain. Negative for: Penile Discharge Musculoskeletal: Negative for: Neck Pain Skin: Negative for: Rash Neurological: Negative for: Weakness, Numbness Physical Exam - Physical Exam Appears: Non-toxic, No Acute Distress Skin: Normal Color, Warm, Dry, No Rash Head: Atraumatic, Normacephalic Eye(s): bilateral: Normal Inspection, PERRL, EOMI Neck: Normal ROM, Supple Cardiovascular: Rhythm Regular Respiratory: Normal Breath Sounds, No Accessory Muscle Use Gastrointestinal/Abdominal: Soft, No Tenderness Back: No CVA Tenderness Male Genital: No Testicular Tenderness, Circumcised, Other (Penis is erect. No signs of surgical wound infection.) Extremity: Normal ROM Neurological/Psych: Oriented x3, Normal Motor, Normal Sensation ED Course And Treatment - Laboratory Results Result Diagrams: 09/21/17 15:55 03/29/18 15:55 Lab Interpretation: No Acute Changes O2 Sat by Pulse Oximetry: 97 Pulse Ox Interpretation: Normal Disposition Discussed With : Sai Black Comment: He states that the issue is that penile prosthesis was not able to be deflated by him. He wants the pt to be admitted to the hospital on his service and he will take pt to OR in the morning to fix the prosthesis. Doctor Will See Patient In The: Hospital Counseled Patient/Family Regarding: Studies Performed, Diagnosis - Disposition Disposition: HOSPITALIZED Disposition Time: 16:40 Condition: STABLE - Clinical Impression Clinical Impression: Malfunction of penile prosthesis, Penile pain
[2017-09-22 07:45] LABS: INR 1.1; PROTHROMBIN TIME 12.5 SECONDS (9.7-12.2)
--- NOTE | 2017-09-22 15:53 | PCM.URO ---
Urology Progress Note - Objective Lab Studies: Reviewed (all notes dictated , 24 hour observation and discharge home pump was manipulated) Lab Results Last 24 Hours: Laboratory Results - last 24 hr 09/21/17 09/21/17 09/21/17 15:55 15:55 16:03 WBC 7.7 RBC 4.71 Hgb 15.5 Hct 46.4 MCV 98.4 H MCH 32.9 H MCHC 33.4 RDW 12.8 Plt Count 265 D MPV 10.7 Neut % (Auto) 66.8 Lymph % (Auto) 21.6 [place] % (Auto) 7.0 Eos % (Auto) 3.8 Baso % (Auto) 0.8 Neut # (Auto) 5.1 Lymph # (Auto) 1.7 [place] # (Auto) 0.5 Eos # (Auto) 0.3 Baso # (Auto) 0.1 PT INR APTT Sodium 143 Potassium 4.2 Chloride 102 Carbon Dioxide 23 Anion Gap 21 H BUN 18 Creatinine 1.0 Est GFR ( Amer) > 60 Est GFR (Non-Af Amer) > 60 Random Glucose 82 Calcium 9.6 Total Bilirubin 0.8 AST 24 ALT 18 L D Alkaline Phosphatase 53 Total Protein 9.6 H Albumin 4.9 Globulin 4.8 H Albumin/Globulin Ratio 1.0 Urine Color Yellow Urine Clarity Clear Urine pH 6.0 Ur Specific [place] 1.023 Urine Protein Negative Urine Glucose (UA) Normal Urine Ketones Negative Urine Blood 1+ H Urine Nitrate Negative Urine Bilirubin Negative Urine Urobilinogen Normal Ur Leukocyte Esterase Neg Urine WBC (Auto) 1 Urine RBC (Auto) 8 H Ur Squamous Epith Cells < 1 09/22/17 07:30 WBC RBC Hgb Hct MCV MCH MCHC RDW Plt Count MPV Neut % (Auto) Lymph % (Auto) [place] % (Auto) Eos % (Auto) Baso % (Auto) Neut # (Auto) Lymph # (Auto) [place] # (Auto) Eos # (Auto) Baso # (Auto) PT 12.5 H INR 1.1 APTT 31 Sodium Potassium Chloride Carbon Dioxide Anion Gap BUN Creatinine Est GFR ( Amer) Est GFR (Non-Af Amer) Random Glucose Calcium Total Bilirubin AST ALT Alkaline Phosphatase Total Protein Albumin Globulin Albumin/Globulin Ratio Urine Color Urine Clarity Urine pH Ur Specific [place] Urine Protein Urine Glucose (UA) Urine Ketones Urine Blood Urine Nitrate Urine Bilirubin Urine Urobilinogen Ur Leukocyte Esterase Urine WBC (Auto) Urine RBC (Auto) Ur Squamous Epith Cells Intake & Output: Intake & Output 09/21/17 09/22/17 09/22/17 18:59 06:59 18:59 Intake Total 300 140 Output Total 650 500 Balance -350 -360 Weight 180 lb Intake: Oral 300 140 Output: Urine 650 500 Urine, Voided 650 500 Other: # Voids Urine, Voided 1 # Bowel Movements 0 Vital Signs: Vital Signs - 24 hr 09/21/17 09/21/17 09/21/17 16:41 17:28 18:00 Temperature 98.1 F 97.4 F L Pulse Rate 78 81 Respiratory 18 20 Rate Blood Pressure 144/96 H 147/84 O2 Sat by Pulse 97 98 98 Oximetry 09/21/17 09/22/17 23:26 07:40 Temperature 98.2 F 98 F Pulse Rate 75 64 Respiratory 20 20 Rate Blood Pressure 104/62 125/80 O2 Sat by Pulse 97 97 Oximetry
[2017-09-22] MEDS ORDERED: Propofol 10 mg/ml Inj (20 ML) ONE (16:30)
[2017-09-22] MEDS ORDERED: HYDROmorphone 0.5 mg/0.5 ml ISec IVP PRN (16:46)
[2017-09-22] MEDS ORDERED: HYDROmorphone 1 mg/ml ISec ONE (17:29)
[2017-09-22 18:07] VITALS: RESP 20
[2017-09-22] MEDS ORDERED: Acetaminophen-Codeine 300/30 mg Tab PO PRN (18:32)
[2017-09-23 01:30] VITALS: O2SAT 97
[2017-09-23 06:46] LABS: BASO % 0.5 % (0.0-2.0); EOS # 0.4 K/uL (0.0-0.7); EOS % 4.9 % (0.0-4.0); HEMOGLOBIN 13.2 g/dL (12.0-18.0); LYMPH # 1.9 K/uL (1.0-4.3); LYMPH % 24.7 % (20.0-40.0); MEAN CORPUSCULAR HEMOGLOBIN 34.1 pg (27.0-31.0); MEAN CORPUSCULAR HGB CONC 34.8 g/dL (33.0-37.0); MEAN PLATELET VOLUME 10.3 fL (7.2-11.7); MONO # 0.7 K/uL (0.0-0.8); MONO % 9.1 % (0.0-10.0); NEUT # 4.8 K/uL (1.8-7.0); NEUT % 60.8 % (50.0-75.0); RBC 3.86 Mil/uL (4.40-5.90); RED CELL DISTRIBUTION WIDTH 12.5 % (11.5-14.5); WHITE BLOOD COUNT 7.9 K/uL (4.8-10.8)
[2017-09-23 07:44] LABS: ALB/GLOB RATIO 1.1 (1.0-2.1); ALBUMIN 3.9 g/dL (3.5-5.0); ALT/SGPT 13 U/L (21-72); AST/SGOT 21 U/L (17-59); BLOOD UREA NITROGEN 14 mg/dL (9-20); CALCIUM 9.1 mg/dl (8.6-10.4); GFR AFRICAN-AMERICAN > 60; GFR NON-AFRICAN AMERICAN > 60
[2017-09-23 07:59] VITALS: BP 123/74; PULSE 89; TEMP 98.6
--- NOTE | 2017-09-25 21:21 | CARD ---
APPROVED REPORT EKG Measurement Heart [id number] <Conclusion> Normal sinus rhythm Septal infarct, age undetermined Inferior infarct, age undetermined Abnormal ECG
--- NOTE | 2017-10-20 02:15 | HP ---
REASON FOR ADMISSION: Manipulation of his penile prosthesis. HISTORY: A very pleasant gentleman. He has a history of prostate cancer. He had surgery with another physician. At that time, that was done, the patient had some voiding dysfunction but has mostly improved since then. He also has erectile dysfunction, gets no erection. So at that time, he saw another urologist a year ago already, more than 5 years that he is FELICIANO. At that time, he saw another urologist who did an insertion of inflatable penile prosthesis. The patient reports that he has not been happy with the results and that is when he started seeing me. We discussed options. See the previously dictated notes from my end. We revised the original. dictated as separate notes. Even then and including now, my recommendation was to consider going to a revision expert but for various reasons, the patient decided to stick with us. At that time, because of the complicated . At this point, the patient was complaining like he feels the prosthesis is okay, but he is not able to manipulate the scrotum and he is not able to cycle. I tried in the office, I could do it but it is very uncomfortable for the patient, so at this point, I am going to do it again, but I am going to deflate it and see if I can manipulate just externally. Now, we have to make further plan, see below. PAST MEDICAL AND SURGICAL HISTORY: There are no other changes. See the previously dictated notes. Really no changes significantly. Prostate cancer is FELICIANO. REVIEW OF SYSTEMS: Listed above, noncontributory. PHYSICAL EXAMINATION: GENERAL: A well-nourished male, in no apparent distress. LUNGS: Clear. HEART: Normal S1 and S2. NECK: No cervical or axillary lymphadenopathy. ABDOMEN: Soft. The prosthesis is the reservoir was not easily felt. The glans, I felt, at this point is in a semi rigid condition. It is not fully erect. See below. When he is under anesthesia, I am able to erect it much greater with a few more pumps. The penile prosthesis, the pump is in reasonable location, without any anesthesia, I am able to feel where the pump is, with anesthesia, you can feel it much better. The pump is itself, when he is sleeping, is able to be deflated and inflated, deflated and inflated, deflated and inflated. . DIAGNOSIS: Erectile dysfunction, status post insertion of penile prosthesis, this is now the second prosthesis that the patient has had. The first one he reported in an access deformity. Now, this is situated in a much better location. The patient still with some very mild complaints. PLAN: Today as follows: 1. We are not going to break the skin, so we are going to do this all externally. We are going to hopefully provide the patient with a good result and begin to cycle between inflated and deflated and try to see if we can manipulate the pump location. 2. So, I explained this to the patient in great detail. I discussed second opinion. I discussed all the different possibility excluding breaking it and making other recommendations. 3. The plan is as follows, the patient to the OR. Hang Black MD
--- NOTE | 2017-10-20 06:01 | OP ---
PROCEDURE DATE: 09/22/2017 PREOPERATIVE DIAGNOSES: Prostate cancer, currently no evidence of disease, voiding dysfunction, erectile dysfunction, status post insertion of inflatable penile prosthesis x2 and difficulty manipulating the prosthesis. POSTOPERATIVE DIAGNOSIS: Prostate cancer, currently no evidence of disease, voiding dysfunction, erectile dysfunction, status post insertion of inflatable penile prosthesis x2 and difficulty manipulating the prosthesis. PROCEDURE: Manipulation under anesthesia. COMPLICATIONS: There were no complications. ESTIMATED BLOOD LOSS: There were no blood loss. There is no incision. DESCRIPTION OF PROCEDURE: The patient brought to the OR, given anesthesia. Timeout was called. We confirmed the patient. No skin is broken. Under anesthesia, with catheter manipulation I pump up and I deflate, I pump up I deflate, it actually worked terrifically well. There is no real deformity. It looks much better, much, much better. Even according to the patient, he noted an improvement. Of note, the scrotal contents need to be adjusted and pulled a little bit, but once done, it pumps up well completely. I left the patient in a flaccid state and he tolerated the procedure well without complication. ADDENDUM: I am going to discuss with him other options. It is in a reasonable location, it is working well, it is pumping up and down. There are no signs of infection. We are of course worried that if he is not able to do and he keeps it erect, we are worried about erosion, urethral erosion etc., and so initially thought I would like to try to help him more, but I do not think at this point, I would recommend any surgical revision. This is his second operation already. See the previously dictated note, where we manipulated and we used larger rear-tip extenders to increase the length. At this point, it seems to be okay. Again, there may be a little bit of defect but it seems much, much, much improved from what we originally took. The patient tolerated the procedure well without complication. Hang Black MD
== END 2017-09-23 10:38 | disposition home or self-care (01) | DRG 700 ==
LOC: C.ER 14:17 → C.3T 16:41
PROVIDERS: ADMIT Urology; ATTEND Urology
PROC: 0VW Male Reproductive System, Revision (ICD-10-PCS; 2017-09-21)
PROC: 0VJSXZZ Inspection of Penis, External Approach (ICD-10-PCS; principal; 2017-09-22 15:00)
DX: T83.490A Other mechanical complication of implanted penile prosthesis, initial encounter (principal); T83.84XA Pain due to genitourinary prosthetic devices, implants and grafts, initial encounter; Z85.46 Personal history of malignant neoplasm of prostate; N52.9 Male erectile dysfunction, unspecified; N39.8 Other specified disorders of urinary system; Y73.2 Prosthetic and other implants, materials and accessory gastroenterology and urology devices associated with adverse incidents